=== PATIENT | male | born 1945 | race Hispanic/Latino ===

== ENCOUNTER 2020-03-18 09:24 | Emergency (ER) | payer OTHER ==
[2020-03-18] MEDS ORDERED: SODIUM CHLORIDE 0.9% 1000ML 2,000 ML IV ONE (09:57)
[2020-03-18 10:04] LABS: BASOPHILS % (AUTO) 0.5 % (0.0-5.0); EOSINOPHILS % (AUTO) 0.7 % (0.0-8.0); HEMATOCRIT 41.8 % (42-54); LYMPHOCYTES % (AUTO) 14.5 % (21.0-51.0); MEAN CORPUSCULAR HEMOGLOBIN 28.5 pg (27.0-33.0); MEAN CORPUSCULAR HGB CONC 32.3 g/dL (32.0-36.0); MEAN CORPUSCULAR VOLUME 88.2 fL (79-99); MONOCYTES % (AUTO) 4.7 % (3.0-13.0); NEUTROPHILS % (AUTO) 79.2 % (40.0-77.0); PLATELET COUNT (AUTO) 365 K/uL (130-400); RED BLOOD CELL COUNT(AUTO) 4.74 MIL/uL (4.50-6.20); RED CELL DISTRIBUTION WIDTH 12.7 % (11.0-15.5); WHITE BLOOD COUNT (AUTO) 11.2 K/uL (4.8-10.8)
[2020-03-18 10:16] LABS: CREATININE 1.1 mg/dL (0.5-1.5); POTASSIUM 4.2 mmol/L (3.5-5.1)
[2020-03-18 10:19] LABS: BILIRUBIN,TOTAL 0.4 mg/dL (0.2-1.0)
[2020-03-18 10:20] LABS: ALBUMIN 4.4 g/dL (3.5-5.0); TOTAL PROTEIN, SERUM 8.4 g/dL (6.0-8.3)
[2020-03-18 10:39] LABS: APPEARANCE,URINE Clear (CLEAR); BILIRUBIN,URINE Negative (NEGATIVE); COLOR,URINE Yellow (YELLOW); GLUCOSE, URINE (UA) >=1000 mg/dL (NEGATIVE); KETONES,URINE 15 mg/dL (NEGATIVE); LEUKOCYTE ESTERASE ,URINE Small (NEGATIVE); NITRATE,URINE Negative (NEGATIVE); OCCULT BLOOD,URINE Negative (NEGATIVE); PH,URINE 5.5 (5.0-8.0); PROTEIN,URINE Negative (NEGATIVE); UROBILINOGEN,URINE 0.2 mg/dL (0.2-1.0)
[2020-03-18 10:57] LABS: BACTERIA,URINE Rare /HPF (None Seen); RBC,URINE 0-1 /HPF (0-1); SQUAMOUS EPITHELIAL CELL,UR Rare /HPF (0-2)
== END 2020-03-18 12:52 | disposition home or self-care (01) ==
LOC: EDH 09:24
DX: R19.7 Diarrhea, unspecified (principal); R10.84 Generalized abdominal pain; E11.9 Type 2 diabetes mellitus without complications; I10 Essential (primary) hypertension; Z87.891 Personal history of nicotine dependence; E78.00 Pure hypercholesterolemia, unspecified; Z90.49 Acquired absence of other specified parts of digestive tract; Z79.899 Other long term (current) drug therapy
CPT/HCPCS: 36415; 80053; 81001; 85025; 96360; 96361; 99283; J7030

== ENCOUNTER → 2023-09-07 | Outpatient (CLI) | payer OTHER | END | disposition home or self-care (01) | LOC: RAH 08:50 | PROVIDERS: ATTEND Internal Medicine | DX: I69.911 Memory deficit following unspecified cerebrovascular disease (principal) | CPT/HCPCS: 70551 ==

== ENCOUNTER 2024-11-04 15:23 | Emergency (ER) | payer OTHER ==
[~2024-11-04] VITALS: Ht 170.2 cm; Wt 66.2 kg
[2024-11-04 17:46] LABS: BASOPHILS # (AUTO) 0.03 K/uL (0.00-0.20); BASOPHILS % (AUTO) 0.6 % (0.0-5.0); HEMATOCRIT 29.1 % (42-54); IMMATURE GRANULOCYTE ABSOLUTE 0.03 K/uL (0-1); LYMPHOCYTES # (AUTO) 0.8 K/uL (1.0-4.8); LYMPHOCYTES % (AUTO) 15.2 % (21.0-51.0); MEAN CORPUSCULAR HEMOGLOBIN 27.6 pg (27.0-33.0); MEAN CORPUSCULAR HGB CONC 30.2 g/dL (32.0-36.0); MEAN CORPUSCULAR VOLUME 91.2 fL (79-99); MONOCYTES # (AUTO) 0.4 K/uL (0.1-1.0); MONOCYTES % (AUTO) 7.5 % (3.0-13.0); NEUTROPHILS # (AUTO) 3.8 K/uL (1.8-7.7); NEUTROPHILS % (AUTO) 74.1 % (40.0-77.0); PLATELET COUNT (AUTO) 333 K/uL (130-400); RED BLOOD CELL COUNT(AUTO) 3.19 MIL/uL (4.50-6.20); RED CELL DISTRIBUTION WIDTH 15.4 % (11.0-15.5); WHITE BLOOD COUNT (AUTO) 5.1 K/uL (4.8-10.8)
--- NOTE | 2024-11-04 17:55 | EKG ---
[facility] Test Date: 2024-11-04 Test Time: 17:49:17 Pat Name: LUCIEN ALMONTE Department: [facility] Room: Gender: M [employer]: [id number] : [id number] Requested By: ODILON ONOFRE Order Number: [id number] Reading MD: Marisela Vallejo Measurements Intervals [place] Rate: 79 P: 100 OK: 152 QRS: 77 QRSD: 89 T: -29 QT: 398 QTc: 451 Interpretive Statements Sinus rhythm with PACs Consider left ventricular hypertrophy No previous ECG available for comparison Electronically Signed On 11-06-2024 16:03:51 [employer] by Marisela Vallejo Please click the below link to view image of tracing.
[2024-11-04 17:57] LABS: CREATININE 1.2 mg/dL (0.5-1.3); POTASSIUM 3.9 mmol/L (3.5-5.1)
--- NOTE | 2024-11-04 17:58 | HMCIMG ---
INDICATION: cp TECHNIQUE: CHEST 1VW COMPARISON: None FINDINGS/IMPRESSION: No acute consolidation or pleural effusion. Cardiac silhouette is within normal limits. Mild degenerative changes of the spine. The visualized upper abdomen appears unremarkable.
[2024-11-04] MEDS ORDERED: 0.9%NACL 1000ML 1,000 ML IV ONE (18:30)
--- NOTE | 2024-11-04 19:43 | ERN ---
General Chief Complaint: Hyperglycemia Stated Complaint: HIGH SUGAR LEVEL Time Seen by MD: 17:23 Time Seen by Midlevel: 17:23 Source: patient History of Present Illness Initial Comments Patient is an 79-year-old male with a past medical history of dementia, hypertension, and type 2 diabetes being brought in by family for evaluation of hyperglycemia. Patient had a fingerstick glucose of over 500 at home so they decided to bring him in for further evaluation. On arrival patient has no symptoms. Allergies: Coded Allergies: No Known Drug Allergies (Unverified Allergy, Unknown, 11/04/24) Past Medical History Past Medical History: A-Fib, Dementia, Diabetes-Type II, High Cholesterol, Hypertension Medical History Other: NEUROPATHY,PAD Past Surgical History: Appendectomy ROS Dictation CONSTITUTIONAL: Negative except for HPI HEAD/FACE: Negative except for HPI EENT: Negative except for HPI RESPIRATORY: Negative except for HPI GASTROINTESTINAL/ABDOMINAL: Negative except for HPI GENITOURINARY: Negative except for HPI MUSCULOSKELETAL: Negative except for HPI INTEGUMENTARY: Negative except for HPI NEUROLOGICAL/PSYCH: Negative except for HPI HEMATOLOGIC/LYMPHATIC: Negative except for HPI All Systems Negative, Except as noted above. 13 point review of systems assessed and all negative except for above. Physical Exam Physical Exam Dictation Vital Signs reviewed General Appearance: Alert, oriented x 3, no acute distress, well developed, nourished. Head and Face: non-traumatic. Eyes: PERRL, pink conjunctivas, eyelid no trauma, anterior chamber with arcus senilis. Ears: Pinnas intact and no signs of trauma or erythema ear canals clear and no discharge TM no erythema Nose: No discharge, no bleeding. Oropharynx: Mouth normal, tongue pink, pharynx clear,no erythema, tonsils no exudates, no abscesses noted, mucous membrane moist Neck: Supple, non-tender, no thyromegaly, no masses, no JVD, no bruits Breast:Deferred Chest:No tenderness, no crepitus, no paradoxical movement, no retractions Lungs:Clear, well-ventilated, symmetric, no rales, no wheezing, no rhonchi, no stridor, good breath sounds bilaterally Heart: Regular rate, regular rhythm, no murmur, no gallops Vascular: no peripheral edema, Abdomen: Soft, positive bowel sounds, nondistended, no guarding, nontender, no rebound, no masses no hepatomegaly, no splenomegaly, no Watson's sign, no hernias. Rectal: Deferred Genital: Deferred Neurological: Normal speech, motor function intact, sensory function intact Musculoskeletal: Neck nontender, full range of motion, back nontender, full range of motion, Extremities: nontender, full range of motion Skin: Color pink, dry, no turgor, no rash, no lacerations, no abrasions, no contusions. Lymphatic: Deferred Results Laboratory and Microbiology Lab and Micro Result Laboratory Tests Test 11/04/24 15:51 11/04/24 17:33 Whole Blood Glucose 387 MG/DL (70-110) H White Blood Count 5.1 K/uL (4.8-10.8) Red Blood Count 3.19 MIL/uL (4.50-6.20) L Hemoglobin 8.8 g/dL (14.0-18.0) L Hematocrit 29.1 % (42-54) L Mean Corpuscular Volume 91.2 fL (79-99) Mean Corpuscular Hemoglobin 27.6 pg (27.0-33.0) Mean Corpuscular Hemoglobin Concent 30.2 g/dL (32.0-36.0) L Red Cell Distribution Width 15.4 % (11.0-15.5) Platelet Count 333 K/uL (130-400) Mean Platelet Volume 9.5 fL (7.5-10.5) Immature Granulocyte % (Auto) 0.6 % (0-1) Neutrophils (%) (Auto) 74.1 % (40.0-77.0) Lymphocytes (%) (Auto) 15.2 % (21.0-51.0) L Monocytes (%) (Auto) 7.5 % (3.0-13.0) Eosinophils (%) (Auto) 2.0 % (0.0-8.0) Basophils (%) (Auto) 0.6 % (0.0-5.0) Neutrophils # (Auto) 3.8 K/uL (1.8-7.7) Lymphocytes # (Auto) 0.8 K/uL (1.0-4.8) L Monocytes # (Auto) 0.4 K/uL (0.1-1.0) Eosinophils # (Auto) 0.10 K/uL (0.00-0.70) Basophils # (Auto) 0.03 K/uL (0.00-0.20) Absolute Immature Granulocyte (auto 0.03 K/uL (0-1) Nucleated Red Blood Cells 0.0 % (0.0-0.19) Red Blood Cell Morphology See comments Sodium Level 137 mmol/L (136-145) Potassium Level 3.9 mmol/L (3.5-5.1) Chloride Level 99 mmol/L (101-111) L Carbon Dioxide Level 31 mmol/L (21-32) Blood Urea Nitrogen 22 mg/dL (7-18) H Creatinine 1.2 mg/dL (0.5-1.3) Glomerular Filtration Rate Calc 61 mL/min (>90) Random Glucose 303 mg/dL (70-105) H Total Calcium 8.7 mg/dL (8.5-10.1) Troponin I High Sensitivity 21 ng/L (4-75) Labs Reviewed?: Yes MDM MDM: Patient is an 79-year-old male with a past medical history of dementia, chronic anemia, hypertension, and type 2 diabetes being brought in by family for evaluation of hyperglycemia. Patient had a fingerstick glucose of over 500 at home so they decided to bring him in for further evaluation. On arrival patient has no symptoms. Fingerstick glucose on arrival was 387. His his CBC shows a normal white blood cell count of 5.1. Patient is anemic with a hemoglobin of 8.8. Family member at bedside does state that patient has a history of chronic anemia and is being treated for this. His last hemoglobin was 9.0. At this time patient is specifically denies any rectal bleeding, hematemesis, dizziness, syncope or any other symptoms. His platelets are normal at 333. Chemistries are stable. Bicarb was normal. Anion gap is within normal ranges. Patient is not in DKA. His chemistries reveal a sugar of 303 which appears to be trending downward. Repeat fingerstick at 7:35 p.m. is 211 without the administration of any fluids for IV insulin. This was discussed with family member and patient and they would like to go home at this time. I believe this is appropriate. The patient was asymptomatic and sugar is trending downward. They were advised to follow up with the primary care doctor in 2-3 days for repeat evaluation or return to the ER for any new or worsening symptoms. Differential diagnosis: DKA, hyperglycemia, HHS There are no social concerns with this patient. Prescription drug management Prescriptions will include: None Medical management and examination interpretation discussions were had by me wi th other qualified healthcare professionals as indicated for the patient's care. ED Course Orders Procedure Category Date Status Time Cbc With Differential LAB 11/04/24 Complete 17:19 Basic Metabolic Panel LAB 11/04/24 Complete 17:19 12 Lead Ekg Tracing- EKG 11/04/24 Complete Technical 17:19 Troponin I High LAB 11/04/24 Complete Sensitivity 17:19 Chest 1vw RAD 11/04/24 Resulted 17:19 0.9%Nacl 1000ml (Ns PHA 11/04/24 Complete 1000ml) 18:30 Current Medications Medications (Trade) Dose Ordered Sig/Arti Route PRN Reason Start Time Stop Time Status Last Admin Dose Admin Sodium Chloride 1,000 ml @ 0 mls/hr ONCE ONCE IV 11/04/24 18:30 11/04/24 18:31 DC Vital Signs Date Time Temp Pulse Resp B/P (MAP) Pulse Ox O2 Delivery O2 Flow Rate FiO2 11/04/24 15:50 97.7 61 18 128/40 100 Room Air 0 7:35PM - Repeat Fingerstick glucose of 211. pt asymptomatic. Family at bedside would like to take patient home. DX & DISP Disposition: Discharge Departure Impression: Primary Impression: Hyperglycemia Condition: Stable Referrals: ANUJ MONTERO MD (PCP) I have reviewed the case, and I agree with, Diagnosis and Plan I performed the substantive portion of the visit. I have reviewed and personally made and approve the management plan that is documented in the note by myself or the UBALDO. I acknowledge for responsibility for the patient's management plan. MAURI KESSLER Nov 04, 2024 19:43
--- NOTE | 2024-11-04 20:08 | NUR ---
PT NOT DISCHARGED DUE TO PENDING IV MEDICATIONS
--- NOTE | 2024-11-04 20:08 | NUR ---
GLUCOSE 211. PENDING IV FLUIDS
[2024-11-04 20:15] VITALS: BP 134/50; PULSE 64; RESP 18; TEMP 98; O2SAT 97
== END 2024-11-04 20:22 | disposition home or self-care (01) ==
LOC: EDH 15:23
DX: E11.65 Type 2 diabetes mellitus with hyperglycemia (principal); E11.40 Type 2 diabetes mellitus with diabetic neuropathy, unspecified; E78.00 Pure hypercholesterolemia, unspecified; F03.90 Unspecified dementia, unspecified severity, without behavioral disturbance, psychotic disturbance, mood disturbance, and anxiety; I10 Essential (primary) hypertension; I48.91 Unspecified atrial fibrillation; Z90.49 Acquired absence of other specified parts of digestive tract
CPT/HCPCS: 36415; 71045; 80048; 82948; 84484; 85025; 93005; 99285

== ENCOUNTER 2024-11-18 00:48 | Emergency (ER) | payer MEDICARE, OTHER ==
[~2024-11-18] VITALS: Ht 170.2 cm; Wt 66.2 kg
--- NOTE | 2024-11-18 01:08 | ERN ---
ED Note History of Present Illness Stated Complaint: BILATERAL LEG PAIN Chief Complaint: Lower Extremity Pain/Injury Time Seen by MD: 00:53 Dictation: This is an 79-year-old male who presented to the emergency room complaining of lower extremity pain. Patient underwent on 11/09/2024 lower extremity angioplasty procedure for severe peripheral arterial disease at [facility] in [place]. He has had progressively increasing pain starting on 11/11 2024 and he has taken Tylenol without any relief. He was unable to pressure and walk and hence brought him for evaluation Temperature 97.9 pulse is 71, respiratory rate 16 blood pressure 120/49 pulse oximetry 98% on room air His chronic medical problems include atrial fibrillation, dementia, diabetes mellitus type 2, hypertension, hypercholesterolemia, peripheral neuropathy and severe peripheral arterial disease Allergies: Coded Allergies: No Known Drug Allergies (Unverified Allergy, Unknown, 11/04/24) Past Medical History Past Medical History: A-Fib, Dementia, Diabetes-Type II, High Cholesterol, Hypertension Additional Past Medical Hx: NEUROPATHY,PAD Surgical History: Appendectomy Family History: Negative RN Note Reviewed/Agreed w/PFSH: Yes Review of System Dictation Constitutional: Negative for fever,chills, and weight loss Eyes: Negative for injury, pain,redness, and discharge ENT: Negative for injury,pain or swelling Cardiovascular: Negative for chest pain, palpitations, and edema Respiratory: Negative for shortness of breath, cough, and wheezing, Abdomen/GI: Negative for abdominal pain, nausea, vomiting, diarrhea, and constipation Back: Negative for injury and pain : Negative for injury, bleeding and discharge MS/Extremity: Negative for injury and deformity severe bilateral lower extremity pain but mostly in the right foot Skin: Negative for rash, and discoloration Neuro: Negative for headache, weakness, numbness, tingling, and seizure Psych: Negative for suicide ideation, homicidal ideation, and hallucinations Initial Vital Sign VS Vital Signs Date Time Temp Pulse Resp B/P (MAP) Pulse Ox O2 Delivery O2 Flow Rate FiO2 11/18/24 00:49 97.3 71 16 120/49 98 Room Air 11/18/24 02:06 0 21 Physical Exam Dictation General: awake, alert, NAD frail elderly male not in any distress Head/Face: Normocephalic, atraumatic Eyes: PERRL, EOMI, vision at baseline ENT: oral cavity clear, TMs clear, no signs of infection Neck: Trachea midline, supple, no nuchal rigidity Cardiovascular: RRR, normal S1/S2, No MRGs, no JVD Respiratory: CTAB, no respiratory distress, No rales or wheezes Abdomen: Soft, non-tender, non-distended, normal bowel sounds, no guarding or rebound. Skin: Warm, dry, normal turgor, no rash MS/Extremity: Pulses equal but weak, no cyanosis, neurovascular intact, FROM, skin is warm tenderness mostly in the lateral part of the heel of right foot and heel area. No ulcerations hematoma or abscess noted. Chronic peripheral art erial insufficiency changes of the skin with loss of hair and dryness noted. No deformity noted Neuro: COAx4, GCS 15, strength 5/5, CN 2-12 intact, normal cerebellar exam, normal gait, Psych: Normal behavior, mood, and affect normal Extremities-trace edema without any palpable cords, Homans sign is negative Results (Laboratory/Radiology) Labs Reviewed?: Yes ED Course ED Course Orders Procedure Category Date Status Time Hydromorphone 0.5mg PHA 11/18/24 Complete Syg (Dilaudid 0.5mg 01:30 Current Medications Medications (Trade) Dose Ordered Sig/Arti Route PRN Reason Start Time Stop Time Status Last Admin Dose Admin Hydromorphone HCl (DiLAUDid 0.5MG INJ) 0.5 mg ONCE ONCE IVP 11/18/24 01:30 11/18/24 01:31 DC 11/18/24 02:23 Vital Signs Date Time Temp Pulse Resp B/P (MAP) Pulse Ox O2 Delivery O2 Flow Rate FiO2 11/18/24 02:06 97.5 63 18 110/45 98 Room Air* 0 21 11/18/24 00:49 97.3 71 16 120/49 98 Room Air We will administer medications according to the patient's complaint. Once the results are available, will review and personally interpreted the labs to rule out any acute life-threatening emergency the trach require immediate intervention and treatment. I will then re-evaluate the patient after treatment and diagnostic exams have return to determine whether the patient requires any further testing, can safely be discharged home or need further admission to hospital for additional treatment and evaluation. I had a long discussion with the patient and spouse and recommended that he follow up with his peripheral vascular disease doctor for further management and for now pain management would be reasonable. I do not see any acute petechiae ecchymosis or gangrenous changes. Medical Decision Making MDM MDM: Differential diagnosis: Rationale: Tests considered and ordered secondary to shared decision making include: Previous outside records reviewed: Old ER visits. Risk of complication and/or morbidity or mortality of patient management: None Medications-Per medication reconciliation Need for hospitalization: Patient does not meet criteria for hospitalization. Need for emergency major/minor surgery: No There are no social concerns with this patient. Prescription drug management Prescriptions will include symptomatic care Patient's prior external medical records from other ER visits were reviewed by me as indicated. Prior testing and results from previous visits were reviewed. Prior tests were taken into account with medical decision making and resource utilization, independent historian/historians were used to obtain complete medical history. I independently interpreted the test that were performed, results were reviewed by me and considered findings on radiology if ordered. Medical management and examination interpretation discussions were had by me with other qualified healthcare professionals as indicated for the patient's care. Problem List Problem List: (1) Bilateral lower extremity pain (2) Peripheral arterial disease with history of revascularization (3) Diabetes mellitus (4) Diabetic neuropathy (5) Chronic atrial fibrillation DX & DISP Disposition: Discharge Departure Impression: Primary Impression: Bilateral lower extremity pain Additional Impressions: Peripheral arterial disease with history of revascularization, Diabetes mellitus, Diabetic neuropathy, Chronic atrial fibrillation Condition: Stable Scripts Acetaminophen with Codeine (Acetaminophen-Cod #3 Tablet) 300 Mg-30 Mg Tablet 1 TAB PO Q6H PRN for PAIN for 7 Days, #30 TAB 0 Refills Prov: GUSTAVO OVALLE MD 11/18/24 Additional Instructions: Patient and the caregiver have been informed of all the diagnostic tests and the imaging conducted during the today's visit to the emergency room and has verbalized understanding of the results I have personally reviewed and int erpreted all diagnostic exams performed here in the ER today as well as the vital signs documented by the nursing staff. The patient is now being discharged to home and should follow up with the primary care physician or the specialist as directed by the ER staff. Follow-up with primary care provider in 1 to 2 days. Take medications as directed here in the emergency room. Okay to continue home medications unless otherwise discussed during your visit in the emergency room today. Return to your nearest emergency room if symptoms worsen or if there is no improvement. Call 911 if you need immediate assistance. Take Tylenol or Motrin [id number] as needed and if no contraindications are present. Increase oral hydration. A wound culture or urine culture was ordered here in the emergency room department please follow-up with primary care provider and advise them to get repeat ports from our facility. If you had any Reinier wrap/splints that were applied here, please do not remove them until you see your primary care or specialty. Referrals: ANUJ MONTERO MD (PCP) GUSTAVO OVALLE MD Nov 18, 2024 01:08
[2024-11-18] MEDS: hydroMORPHone 0.5 MG SYG (0.5MG/0.5ML) IVP ONE (02:23)
[2024-11-18] MEDS ORDERED: ACET-2079 PO (02:30)
--- NOTE | 2024-11-18 03:05 | NUR ---
ORTHO BOOT APPLIED ORDERED
[2024-11-18 03:10] VITALS: BP 125/50; PULSE 62; RESP 16; TEMP 97.9; O2SAT 97
[2024-11-19] MEDS ORDERED: AMLO-257 PO (15:51)
[2024-11-19] MEDS ORDERED: MAGN400T53 PO (15:51)
[2024-11-19] MEDS ORDERED: EMPA25TA PO (15:51)
[2024-11-19] MEDS ORDERED: ATOR10 PO (15:51)
[2024-11-19] MEDS ORDERED: TERA5CAP4 PO (15:51)
[2024-11-19] MEDS ORDERED: CETI10TA87 PO (15:51)
[2024-11-19] MEDS ORDERED: HYDR12.54 PO (15:51)
[2024-11-19] MEDS ORDERED: APIX5TAB PO (15:51)
[2024-11-19] MEDS ORDERED: PIOG30TA70 PO (15:51)
[2024-11-19] MEDS ORDERED: CHOL2000 PO (15:51)
[2024-11-19] MEDS ORDERED: METF-446 PO (15:51)
[2024-11-19] MEDS ORDERED: METO-408 PO (15:51)
[2024-11-19] MEDS ORDERED: LISI40TA9 PO (15:51)
[2024-11-19] MEDS ORDERED: FERR325T29 PO (15:51)
[2024-11-19] MEDS ORDERED: INSU100V51 SQ (16:04)
[2024-11-20] MEDS ORDERED: ASPI-1005 PO (10:41)
== END 2024-11-18 03:32 | disposition home or self-care (01) ==
LOC: EDH 00:48
DX: E11.51 Type 2 diabetes mellitus with diabetic peripheral angiopathy without gangrene (principal); E11.40 Type 2 diabetes mellitus with diabetic neuropathy, unspecified; I48.20 Chronic atrial fibrillation, unspecified; M79.604 Pain in right leg; M79.605 Pain in left leg; E78.00 Pure hypercholesterolemia, unspecified; F03.90 Unspecified dementia, unspecified severity, without behavioral disturbance, psychotic disturbance, mood disturbance, and anxiety; I10 Essential (primary) hypertension; Z90.49 Acquired absence of other specified parts of digestive tract
CPT/HCPCS: 99283; 96374; J1171

== ENCOUNTER 2025-03-06 23:03 | Emergency (ER) | payer OTHER, MEDICARE ==
[~2025-03-06 23:03] MED LIST: ACET-2079 PO; ATOR40TA71 PO; CLOP75TA32 PO; GABA-529 PO; INSU100V51 SQ; LOSA50TA64 PO; METO50TA18 PO; PANT40TA54 PO; TRAZ-187 PO
--- NOTE | 2025-03-07 00:15 | ERN ---
ED Note History of Present Illness Stated Complaint: FALL Chief Complaint: Mechanical Fall Time Seen by MD: 23:32 Dictation: THIS IS A 79-YEAR-OLD MALE WITH A PAST MEDICAL HISTORY OF AFIB, AORTIC STENOSIS, CORONARY ARTERY DISEASE, CKD, GI BLEED, IRON DEFICIENCY ANEMIA. SURGICAL HISTORY OF RECENTLY RIGHT BKA WITH BEEN DISCHARGED TO A [facility] FROM THIS FACILITY RECENTLY. TODAY PATIENT WAS BROUGHT TO THE ER AFTER A MECHANICAL FALL, PER REPORTS FROM [facility] PATIENT FELL LIKELY FROM A CHAIR AND HIT HIS HEAD. PATIENT DENIES HEADACHE, DENIES CHEST PAIN. PATIENT IS A ON ELIQUIS DUE TO HISTORY OF ATRIAL FIBRILLATION. Allergies: Coded Allergies: No Known Drug Allergies (Unverified Allergy, Unknown, 11/04/24) Home Meds Reported Medications Acetaminophen with Codeine (Acetaminophen-Cod #3 Tablet) 300 Mg-30 Mg Tablet, 1 TAB PO TIDP PRN for pain for 28 Days, #28 TAB 0 Refills 01/14/25 Gabapentin (Gabapentin) 100 Mg Capsule, 1 CAP PO TID for 30 Days, #90 CAP 0 Refills 01/14/25 Losartan Potassium (Losartan Potassium) 50 Mg Tablet, 1 TAB PO DAILY for 30 Days, #30 TAB 0 Refills 01/14/25 Atorvastatin Calcium (Atorvastatin Calcium) 40 Mg Tablet, 1 TAB PO HS for 30 Days, #30 TAB 0 Refills 25 Trazodone HCl (Trazodone HCl) 100 Mg Tablet, 1 TAB PO HS PRN for INSOMNIA/SLEEP for 30 Days, #30 TAB 0 Refills 25 Metoprolol Tartrate (Metoprolol Tartrate) 50 Mg Tablet, 1.5 TAB PO DAILY for 30 Days, #60 TAB 0 Refills 01/14/25 Pantoprazole Sodium (Pantoprazole Sodium) 40 Mg Tablet.dr, 1 TAB PO DAILY for 30 Days, #30 TAB 0 Refills 01/14/25 Clopidogrel Bisulfate (Clopidogrel) 75 Mg Tablet, 1 TAB PO DAILY for 30 Days, #30 TAB 0 Refills 01/14/25 Insulin Glargine-Yfgn (Insulin Glargine-Yfgn) 100 Unit/Ml Vial, 10 UNIT SQ HS for BLOOD GLUCOSE GREATER THAN 150, #19 VIAL 11/19/24 Past Medical History Past Medical History: Diabetes-Type II, High Cholesterol, Hypertension Additional Past Medical Hx: PAD Surgical History: Appendectomy Surgical History Other: BILAT EYE SX Family History: Negative Review of System Dictation INSERT NEGATIVE ROS NEGATIVE EXCEPT PER HPI CONSTITUTIONAL: NEGATIVE FOR FEVER,CHILLS, AND WEIGHT LOSS EYES: NEGATIVE FOR INJURY, PAIN,REDNESS, AND DISCHARGE ENT: NEGATIVE FOR INJURY,PAIN OR SWELLING CARDIOVASCULAR: DENIES CHEST PAIN, PALPITATIONS, AND EDEMA RESPIRATORY: NEGATIVE FOR SHORTNESS OF BREATH, COUGH, AND WHEEZING, ABDOMEN/GI: NEGATIVE FOR ABDOMINAL PAIN, NAUSEA, VOMITING, DIARRHEA, AND CONSTIPATION BACK: NEGATIVE FOR INJURY AND PAIN : NEGATIVE FOR INJURY, BLEEDING AND DISCHARGE MS/EXTREMITY: NEGATIVE FOR INJURY AND DEFORMITY SKIN: NEGATIVE FOR RASH, AND DISCOLORATION NEURO: NEGATIVE FOR HEADACHE, WEAKNESS, NUMBNESS, TINGLING, AND SEIZURE PSYCH: NEGATIVE FOR SUICIDE IDEATION, HOMICIDAL IDEATION, AND HALLUCINATIONS Initial Vital Sign VS Vital Signs Date Time Temp Pulse Resp B/P (MAP) Pulse Ox O2 Delivery O2 Flow Rate FiO2 03/06/25 23:58 98.8 61 16 183/66 97 Room Air* 0 21 Physical Exam Dictation GENERAL: AWAKE, ALERT, NAD HEAD/FACE: NORMOCEPHALIC, ATRAUMATIC EYES: PERRL, EOMI, VISION AT BASELINE ENT: ORAL CAVITY CLEAR, TMS CLEAR, NO SIGNS OF INFECTION NECK: TRACHEA MIDLINE, SUPPLE, NO NUCHAL RIGIDITY CARDIOVASCULAR: RRR, NORMAL S1/S2, NO MRGS, NO JVD RESPIRATORY: CTAB, NO RESPIRATORY DISTRESS, NO RALES OR WHEEZES ABDOMEN: SOFT , NO TENDER SKIN: WARM, DRY, NORMAL TURGOR, NO RASH MS/EXTREMITY: RIGHT LOWER EXTREMITY BKA, NEURO: COAX4, GCS 15, STRENGTH 5/5, CN 2-12 INTACT, NORMAL CEREBELLAR EXAM, NORMAL GAIT, PSYCH: NORMAL BEHAVIOR, MOOD, AND AFFECT NORMAL Results (Laboratory/Radiology) Laboratory/Radiology Laboratory Tests Test 03/07/25 00:24 White Blood Count 8.2 K/uL (4.8-10.8) Red Blood Count 3.96 MIL/uL (4.50-6.20) L Hemoglobin 9.2 g/dL (14.0-18.0) L Hematocrit 29.9 % (42-54) L Mean Corpuscular Volume 75.5 fL (79-99) L Mean Corpuscular Hemoglobin 23.2 pg (27.0-33.0) L Mean Corpuscular Hemoglobin Concent 30.8 g/dL (32.0-36.0) L Red Cell Distribution Width 18.9 % (11.0-15.5) H Platelet Count 226 K/uL (130-400) Mean Platelet Volume 8.6 fL (7.5-10.5) Immature Granulocyte % (Auto) 0.2 % (0-1) Neutrophils (%) (Auto) 74.2 % (40.0-77.0) Lymphocytes (%) (Auto) 17.6 % (21.0-51.0) L Monocytes (%) (Auto) 4.0 % (3.0-13.0) Eosinophils (%) (Auto) 3.6 % (0.0-8.0) Basophils (%) (Auto) 0.4 % (0.0-5.0) Neutrophils # (Auto) 6.1 K/uL (1.8-7.7) Lymphocytes # (Auto) 1.4 K/uL (1.0-4.8) Monocytes # (Auto) 0.3 K/uL (0.1-1.0) Eosinophils # (Auto) 0.29 K/uL (0.00-0.70) Basophils # (Auto) 0.03 K/uL (0.00-0.20) Absolute Immature Granulocyte (auto 0.02 K/uL (0-1) Nucleated Red Blood Cells 0.0 % (0.0-0.19) Red Blood Cell Morphology ROULEAUX 2+ Troponin I High Sensitivity 23 ng/L (4-75) B-Type Natriuretic Peptide 226 pg/mL (0-100) H EKG Comment: EKG done . Sinus rhythm, UT 2 7, rate 60, QRS D 105, QT 490. ED Course ED Course Orders Procedure Category Date Status Time Chest 1vw RAD 03/06/25 Taken 23:59 Ct Head/Brain W/O CT 03/06/25 Resulted Contrast 23:59 12 Lead Ekg Tracing- EKG 03/07/25 Logged Technical 00:06 Troponin I High LAB 03/07/25 Complete Sensitivity 00:06 B-Type Natriuretic LAB 03/07/25 Complete Peptide 00:06 Cbc With Differential LAB 03/07/25 Complete 00:06 Vital Signs Date Time Temp Pulse Resp B/P (MAP) Pulse Ox O2 Delivery O2 Flow Rate FiO2 03/06/25 23:58 98.8 61 16 183/66 97 Room Air* 0 21 Medical Decision Making MDM THIS IS A 79-YEAR-OLD MALE WITH A PAST MEDICAL HISTORY OF AFIB, AORTIC STENOSIS, CORONARY ARTERY DISEASE, CKD, GI BLEED, IRON DEFICIENCY ANEMIA. SURGICAL HISTORY OF RECENTLY RIGHT BKA WITH BEEN DISCHARGED TO A [facility] FROM THIS FACILITY RECENTLY. TODAY PATIENT WAS BROUGHT TO THE ER AFTER A MECHANICAL FALL, PER REPORTS FROM [facility] PATIENT FELL LIKELY FROM A CHAIR AND HIT HIS HEAD. PATIENT DENIES HEADACHE, DENIES CHEST PAIN. PATIENT IS A ON ELIQUIS DUE TO HISTORY OF ATRIAL FIBRILLATION. MECHANICAL FALL CT OF BRAIN ORDERED SINCE THE PATIENT IS ON ELIQUIS TO RULE OUT BLEEDING CHEST X-RAY EKG TROPONIN MOST OF LABS ORDERED DUE TO EXTENSIVE HEART DISEASE CT HEAD/BRAIN W/O CONTRAST HISTORY: Status post fall COMPARISON: None TECHNIQUE: Multiple sequential axial images of the head were obtained from the base of the skull through vertex. Patient was not given contrast through intravenous route. FINDINGS: The ventricles and extraventricular CSF spaces are dilated consistent with cerebral atrophy. Nonspecific white matter changes seen. The study is limited due to poor positioning. There is no midline shift, mass effect or herniation. No acute intracranial bleed is seen. Visualized portion of the paranasal sinuses are grossly within normal limits. IMPRESSION: 1. No acute intracranial bleed is seen. 2. Atrophy with white matter changes. LABORATORY WAS WITHIN NORMAL LIMITS, TROPONIN NEGATIVE. CT OF HEAD NEGATIVE. PATIENT HE WILL BE DISCHARGED BACK TO [facility]. FALL PRECAUTION HE WILL BE RECOMMENDED AT [facility]. DX & DISP Disposition: Discharge Departure Impression: Primary Impression: Accident due to mechanical fall without injury Condition: Stable Additional Instructions: RETURN TO ER FOR ANY ACUTE OR WORSENING SYMPTOMS. FOLLOW-UP IN 1-2 DAYS WITH PRIMARY PROVIDER FOR RECHECK OF TODAY'S SYMPTOMS. CONTINUE FALL PRECAUTIONS. Referrals: ANUJ MONTERO MD (PCP) BARBARA ALLEN MD March 07, 2025 00:15
[2025-03-07 00:45] LABS: BASOPHILS # (AUTO) 0.03 K/uL (0.00-0.20); BASOPHILS % (AUTO) 0.4 % (0.0-5.0); EOSINOPHILS # (AUTO) 0.29 K/uL (0.00-0.70); EOSINOPHILS % (AUTO) 3.6 % (0.0-8.0); HEMATOCRIT 29.9 % (42-54); IMMATURE GRANULOCYTE ABSOLUTE 0.02 K/uL (0-1); LYMPHOCYTES # (AUTO) 1.4 K/uL (1.0-4.8); LYMPHOCYTES % (AUTO) 17.6 % (21.0-51.0); MEAN CORPUSCULAR HEMOGLOBIN 23.2 pg (27.0-33.0); MEAN CORPUSCULAR HGB CONC 30.8 g/dL (32.0-36.0); MEAN CORPUSCULAR VOLUME 75.5 fL (79-99); MONOCYTES # (AUTO) 0.3 K/uL (0.1-1.0); NEUTROPHILS # (AUTO) 6.1 K/uL (1.8-7.7); NEUTROPHILS % (AUTO) 74.2 % (40.0-77.0); PLATELET COUNT (AUTO) 226 K/uL (130-400); RED BLOOD CELL COUNT(AUTO) 3.96 MIL/uL (4.50-6.20); RED CELL DISTRIBUTION WIDTH 18.9 % (11.0-15.5); WHITE BLOOD COUNT (AUTO) 8.2 K/uL (4.8-10.8)
--- NOTE | 2025-03-07 00:50 | HMCIMG ---
CT HEAD/BRAIN W/O CONTRAST HISTORY: Status post fall COMPARISON: None TECHNIQUE: Multiple sequential axial images of the head were obtained from the base of the skull through vertex. Patient was not given contrast through intravenous route. FINDINGS: The ventricles and extraventricular CSF spaces are dilated consistent with cerebral atrophy. Nonspecific white matter changes seen. The study is limited due to poor positioning. There is no midline shift, mass effect or herniation. No acute intracranial bleed is seen. Visualized portion of the paranasal sinuses are grossly within normal limits. IMPRESSION: 1. No acute intracranial bleed is seen. 2. Atrophy with white matter changes. CT was performed with one or more following dose reduction techniques: automated exposure control, adjustment of the mA and kv according to patient's size, or use of a iterative reconstruction technique.
[2025-03-07 01:22] LABS: B-TYPE NATRIURETIC PEPTIDE 226 pg/mL (0-100)
--- NOTE | 2025-03-07 02:04 | NUR ---
EMS CALLED FOR TRANSFER BACK TO [place]
--- NOTE | 2025-03-07 02:04 | NUR ---
REPORT CALLED TO [facility]
[2025-03-07] MEDS: LIDOCAINE 4% ADH..PATCH TP ONE (02:25)
[2025-03-07] MEDS: acetaMINOPHEN 500 MG TABLET PO ONE (02:25)
[2025-03-07] MEDS ORDERED: LIDOCAINE 4% ADH..PATCH TP ONE (02:30)
--- NOTE | 2025-03-07 02:56 | NUR ---
EMS HERE FOR TRANSFER TO [place].
--- NOTE | 2025-03-07 03:02 | NUR ---
DREW UPDATED ON PAIN MEDICATIONS THAT WERE GIVEN
[2025-03-07 03:03] VITALS: BP 172/64; PULSE 64; RESP 16; TEMP 98.8; O2SAT 96
--- NOTE | 2025-03-07 06:51 | EKG ---
[facility] Test Date: 2025-03-07 Test Time: 00:17:04 Pat Name: LUCIEN ALMONTE Department: [facility] Room: Gender: M Media Intern: [id number] : 1945 Requested By: BARBARA HORNE Order Number: [id number] Reading MD: Lino Lowry Measurements Intervals [place] Rate: 60 P: -11 WA: 207 QRS: 45 QRSD: 105 T: 68 QT: 490 QTc: 492 Interpretive Statements Sinus rhythm Probable left ventricular hypertrophy Nonspecific T abnormalities, lateral leads Compared to ECG 01/31/2025 06:58:31 Atrial fibrillation no longer present Right-axis deviation no longer present T-wave abnormality still present Electronically Signed On 03-07-2025 07:40:08 CDT by Lino Lowry Please click the below link to view image of tracing.
--- NOTE | 2025-03-07 08:31 | HMCIMG ---
CHEST 1VW HISTORY: Status post fall COMPARISON: 01/29/2025 FINDINGS: A frontal projection of the chest was obtained. No acute pulmonary infiltrates is seen. Heart is enlarged. Degenerative changes are seen. Aortic calcifications are seen. Prominent interstitial markings are seen. No evidence of aortic calcification is seen. IMPRESSION: 1. No acute pulmonary infiltrate is seen.
== END 2025-03-07 03:09 ==
LOC: EDH 23:03
DX: Z04.3 Encounter for examination and observation following other accident (principal); I12.9 Hypertensive chronic kidney disease with stage 1 through stage 4 chronic kidney disease, or unspecified chronic kidney disease; E11.22 Type 2 diabetes mellitus with diabetic chronic kidney disease; N18.9 Chronic kidney disease, unspecified; I25.10 Atherosclerotic heart disease of native coronary artery without angina pectoris; E78.00 Pure hypercholesterolemia, unspecified; Z79.02 Long term (current) use of antithrombotics/antiplatelets; Z79.899 Other long term (current) drug therapy; Z90.49 Acquired absence of other specified parts of digestive tract
CPT/HCPCS: 36415; 70450; 71045; 83880; 84484; 85025; 93005; 99285